=== PATIENT | male | born 1975 | race Caucasian/White ===

== ENCOUNTER 2025-02-28 11:56 | Emergency (ER) | payer MEDICAID ==
[~2025-02-28] VITALS: Ht 175.3 cm; Wt 80.0 kg
[2025-02-28] MEDS: DIPHENHYDRAMINE 50MG/ML VIAL IM ONE (12:40)
[2025-02-28] MEDS: HALOPERIDOL LACTATE 5MG/ML VIAL IM ONE (12:41)
[2025-02-28] MEDS: LORAZEPAM 2MG/ML UD SYRINGE IM NR (12:41)
[2025-02-28 13:37] VITALS: O2SAT 95
[2025-02-28 14:55] LABS: BASOPHILS % 0.6 % (0.0-2.0); EOSINOPHILS % 0.0 % (0.0-5.0); HEMATOCRIT. 47.3 % (42.0-52.0); HEMOGLOBIN. 16.0 g/dL (14.0-18.0); LYMPHOCYTES % 12.8 % (20.0-50.0); MEAN PLATELET VOLUME 7.0 fl (7.4-10.4); MONOCYTES % 10.7 % (2.0-8.0); NEUTROPHILS % 75.9 % (40.0-76.0); PLATELET 303 x1000/uL (130-400); RED BLOOD CELL COUNT 5.50 mill/uL (4.7-6.1); RED CELL DISTRIBUTION WIDTH 14.1 % (11.6-14.6)
[2025-02-28 15:43] LABS: CREATININE 2.1 mg/dL (0.6-1.3)
[2025-02-28 15:44] LABS: ETHANOL BLOOD < 10 mg/dL (<10); PROTEIN TOTAL 8.5 g/dL (6.0-8.3); UREA NITROGEN BLOOD 14 mg/dL (9-23)
[2025-02-28 15:45] LABS: ASPARTATE AMINOTRANSFERASE 81 IU/L (<34)
[2025-02-28 15:46] LABS: BILIRUBIN DIRECT 0.5 mg/dL (<=3.0); BILIRUBIN TOTAL 1.5 mg/dL (0.1-1.0)
[2025-03-01 01:27] LABS: CLARITY URINE CLOUDY (CLEAR); COLOR URINE ORANGE (YELLOW); GLUCOSE URINE NEGATIVE (NEGATIVE); KETONES URINE 1+ (NEGATIVE); LEUKOCYTE ESTERASE URINE TRACE (NEGATIVE); NITRITE URINE POSITIVE (NEGATIVE); OCCULT BLOOD URINE 2+ (NEGATIVE); PH URINE 5.0 (4.5-8.0); PROTEIN URINE 2+ (NEGATIVE); SPECIFIC GRAVITY URINE 1.033 (1.005-1.030); UROBILINOGEN URINE 0.2 E.U./dL (0.2-1.0)
[2025-03-01 01:56] LABS: *AMPHETAMINES SCREEN URINE PRESUMPTIVE POSITIVE (NEGATIVE)
[2025-03-01 01:57] LABS: *BARBITURATES SCREEN URINE NEGATIVE (NEGATIVE); *BENZODIAZEPINES SCREEN URINE NEGATIVE (NEGATIVE); *COCAINE SCREEN URINE NEGATIVE (NEGATIVE); CANNABINOID URINE SCREEN NEGATIVE (NEGATIVE); ECSTASY MDMA SCREEN URINE CONF.TEST INDICATED (NEGATIVE); METHADONE URINE SCREEN NEGATIVE (NEGATIVE); OPIATES URINE SCREEN NEGATIVE (NEGATIVE); PHENCYCLIDINE URINE SCREEN NEGATIVE (NEGATIVE)
[2025-03-01 03:23] LABS: BACTERIA URINE 1+; RBC URINE NONE SEEN /hpf (0-2); SQUAMOUS EPITHELIAL CELL URINE 1+ /lpf (RARE/1+); WBC URINE 0-2 /hpf (0-2)
[2025-03-01] MEDS: CEPHALEXIN 250MG CAPSULE PO SCH (09:00)
[2025-03-01 14:47] VITALS: BP 118/81; PULSE 100; RESP 18; TEMP 36.7; O2SAT 100
== END 2025-03-01 15:04 ==
LOC: ER 11:56 → EDBD 11:56 → ER 03-01 15:04
DX: F29 Unspecified psychosis not due to a substance or known physiological condition (principal); Z20.822 Contact with and (suspected) exposure to COVID-19; Z79.899 Other long term (current) drug therapy
CPT/HCPCS: 80076; 80048; 80320; 83690; 85025; 36415; 93005; 96372; 99291; 87426; 80305; 81003; 80307; 80329; J1200; J1630; J2060; Z7610; G0480